=== PATIENT | female | born 1995 | race African-American/Black ===

== ENCOUNTER 2025-02-25 10:15 | Emergency (ER) | payer OTHER ==
[~2025-02-25] VITALS: Ht 170.2 cm; Wt 138.7 kg
[2025-02-25] MEDS ORDERED: BENA25CA4 PO (10:29)
[2025-02-25] MEDS: NS (Normal Saline) 0.9% 1,000 ML IV ONE ×2 (11:30→13:11)
[2025-02-25] MEDS: diphenhydrAMINE 50MG/ML VIAL IV ONE (11:34)
[2025-02-25] MEDS: methylPREDNISolone 125MG 2ML VIAL IV ONE (11:34)
[2025-02-25] MEDS: FAMOTIDINE 20MG/2ML VIAL IVP ONE (11:35)
[2025-02-25 12:03] LABS: BASO % 0.2 % (0.0-1.0); EOS # 0.7 10^3/uL (0.0-0.5); EOS % 8.9 % (0.0-3.0); HEMATOCRIT 37.1 % (36.0-47.0); HEMOGLOBIN 12.2 g/dl (12.0-15.5); LYMPH # 2.1 10^3/uL (1.5-5.0); LYMPH % 26.4 % (24.0-44.0); MEAN CORPUSCULAR HEMOGLOBIN 28.1 pg (27.0-33.0); MEAN CORPUSCULAR HGB CONC 32.9 g/dl (32.0-36.5); MEAN CORPUSCULAR VOLUME 85.5 fl (80.0-96.0); MONO # 0.6 10^3/uL (0.0-0.8); MONO % 7.3 % (2.0-8.0); NEUTROPHILS # 4.6 10^3/uL (1.5-8.5); PLATELET COUNT, AUTOMATED 236 10^3/uL (150-450); RED BLOOD COUNT 4.34 10^6/uL (4.00-5.40); WHITE BLOOD COUNT 8.1 10^3/uL (4.0-10.0)
[2025-02-25 12:47] LABS: ALBUMIN 2.9 G/DL (3.2-5.2); ALKALINE PHOSPHATASE 81 U/L (35-104); ALT/SGPT 24 U/L (7.0-40); AST/SGOT 16 U/L (<34); BILIRUBIN,TOTAL 0.2 MG/DL (0.3-1.2); BLOOD UREA NITROGEN 10 MG/DL (9-23); CALCIUM LEVEL 7.8 MG/DL (8.5-10.1); CARBON DIOXIDE LEVEL 29 MMOL/L (20-31); CHLORIDE LEVEL 105 MMOL/L (98-107); GLOMERULAR FILTRATION RATE > 90.0 (>60); GLUCOSE, FASTING 107 MG/DL (60-100); POTASSIUM SERUM 3.9 MMOL/L (3.5-5.1); SODIUM LEVEL 139 MMOL/L (136-145); TOTAL PROTEIN 6.8 G/DL (5.7-8.2)
[2025-02-25] MEDS ORDERED: PRED20TA PO (15:43)
[2025-02-25] MEDS ORDERED: FAMO20TA PO (15:43)
[2025-02-25] MEDS: FAMOTIDINE 20 MG TAB PO ONE (15:50)
[2025-02-25 16:17] VITALS: BP 131/69; TEMP 98; O2SAT 98
== END 2025-02-25 16:21 | disposition home or self-care (01) ==
LOC: M ED 10:15
DX: T78.40XA Allergy, unspecified, initial encounter (principal); Z91.018 Allergy to other foods
CPT/HCPCS: 80053; 85025; 93041; 94760; 96374; 96375; 99285; J1200; J1308; J2919

== ENCOUNTER 2025-02-27 14:45 | Emergency (ER) | payer OTHER ==
[~2025-02-27] VITALS: Ht 170.2 cm; Wt 137.8 kg
[~2025-02-27 14:45] MED LIST: BENA25CA4 PO; FAMO20TA PO; PRED20TA PO
[2025-02-27] MEDS: FAMOTIDINE 20MG/2ML VIAL IVP ONE (18:50)
[2025-02-27] MEDS: dexAMETHasone 20MG/5ML VIAL IV ONE (18:50)
[2025-02-27] MEDS: diphenhydrAMINE 50MG/ML VIAL IV ONE (18:51)
[2025-02-27] MEDS ORDERED: CETI10CH PO (19:47)
[2025-02-27] MEDS ORDERED: PRED20TA PO (19:47)
[2025-02-27 19:55] VITALS: BP 116/75; TEMP 98.6; O2SAT 99
[2025-02-27] MEDS ORDERED: EPIP0.3I2 IM (20:19)
== END 2025-02-27 20:22 | disposition home or self-care (01) ==
LOC: M ED 14:45
DX: L23.4 Allergic contact dermatitis due to dyes (principal); Z91.018 Allergy to other foods
CPT/HCPCS: 96374; 96375; 99284; J1100; J1200; J1308